=== PATIENT | male | born 1995 | race Caucasian/White ===

== ENCOUNTER 2017-04-18 01:35 | Inpatient (IN) | payer OTHER ==
[~2017-04-18] VITALS: Ht 177.8 cm; Wt 65.4 kg
[2017-04-18 02:02] VITALS: BP 121/74; PULSE 83; RESP 16; TEMP 98.3; O2SAT 99
[2017-04-18 02:45] LABS: AUTOMATED NEUTROPHIL # 4.9 TH/MM3 (1.8-7.7); BASOPHIL # 0.1 TH/MM3 (0-0.2); BASOPHIL % 0.8 % (0.0-2.0); EOSINOPHIL % 0.6 % (0.0-4.0); HEMATOCRIT 42.1 % (39.0-51.0); HEMO FLAGS DIFF FINAL; LYMPH % 23.6 % (9.0-44.0); LYMPHOCYTE # 1.7 TH/MM3 (1.0-4.8); MEAN CELL VOLUME 85.1 FL (80.0-100.0); MEAN CORPUSCULAR HEMOGLOBIN 29.3 PG (27.0-34.0); MEAN CORPUSCULAR HGB CONC 34.5 % (32.0-36.0); MONO % 8.3 % (0.0-8.0); NEUT % 66.7 % (16.0-70.0); PLATELET COUNT 304 TH/MM3 (150-450); RED BLOOD COUNT 4.95 MIL/MM3 (4.50-5.90); RED CELL DISTRIBUTION WIDTH 13.4 % (11.6-17.2); WHITE BLOOD COUNT 7.4 TH/MM3 (4.0-11.0)
[2017-04-18 02:54] LABS: AMPHETAMINE, URINE NEG (NEG); BARBITURATES, URINE NEG (NEG); COCAINE, URINE NEG (NEG)
[2017-04-18 03:07] LABS: ALT (GPT) 35 U/L (12-78); ANION GAP 12 MEQ/L (5-15); AST (GOT) 35 U/L (15-37); BICARBONATE 22.6 MEQ/L (21.0-32.0); BLOOD UREA NITROGEN 16 MG/DL (7-18); CHLORIDE 106 MEQ/L (98-107); GLOMERULAR FILTRATION RATE 77 ML/MIN (>89); POTASSIUM 3.3 MEQ/L (3.5-5.1); SODIUM (NA) 141 MEQ/L (136-145)
[2017-04-18 03:09] LABS: ALKALINE PHOSPHATASE 81 U/L (45-117); TOTAL BILIRUBIN ADULT 0.4 MG/DL (0.2-1.0)
--- NOTE | 2017-04-18 04:12 | PD ---
HPI Chief Complaint: Psychiatric Symptoms Time Seen by Provider: 04:02 Travel History International Travel<30 days: No Contact w/Intl Traveler<30days: No Traveled to known affect area: No History of Present Illness HPI 21-year-old male here as a Phillips act. Per Phillips act patient was walking on concrete rail of this [place]. Advised he doesn't care anymore and was crying upon contact. High likelihood of harming himself. Patient states that he has been feeling depressed and suicidal. This is recent. He denies any new inciting events, loss of the loved one, etc. that way have caused this. He admits that he was thinking about jumping off the bridge this evening. Patient has never had a previous suicide attempt, does not take any medications and denies taking any medications previously. He has never previously sought treatment for depression. PFSH Past Medical History Medical History: Denies Significant Hx Immunizations Current: Yes Tetanus Vaccination: < 5 Years Influenza Vaccination: No Social History Alcohol Use: No Tobacco Use: Yes Substance Use: No Allergies-Medications (Allergen,Severity, Reaction): Coded Allergies: No Known Allergies (Unverified , 04/18/17) Reported Meds & Prescriptions Reported Meds & Active Scripts Active No Active Prescriptions or Reported Medications Review of Systems ROS Limitations: Poor Historian Except as stated in HPI: all other systems reviewed are Neg Physical Exam Exam Limitations: Poor Historian Narrative GENERAL: Well-appearing male sleeping in no acute distress SKIN: Focused skin assessment warm/dry. HEAD: Normocephalic. EYES: No scleral icterus. No injection or drainage. ENT: No nasal bleeding or discharge. Mucous membranes pink and moist. NECK: Supple CARDIOVASCULAR: Regular rate and rhythm. RESPIRATORY: No accessory muscle use. MUSCULOSKELETAL: Normal gait NEUROLOGICAL: Awake and alert. Normal speech. PSYCHIATRIC: Blunted mood and affect, admits to suicidal ideation, depression but denies delusions, hallucinations, homicidal ideation Data Data Last Documented VS Vital Signs Date Time Temp Pulse Resp B/P Pulse Ox O2 Delivery O2 Flow Rate FiO2 04/18/17 02:02 98.3 83 16 121/74 99 Orders Complete Blood Count With Diff (04/18/17 02:16) Comprehensive Metabolic Panel (04/18/17 02:16) Psych Screen (04/18/17 02:16) Drug Screen, Random Urine (04/18/17 02:16) Salicylates (Aspirin) (04/18/17 02:16) Labs Laboratory Tests Test 04/18/17 02:20 White Blood Count 7.4 TH/MM3 Red Blood Count 4.95 MIL/MM3 Hemoglobin 14.5 GM/DL Hematocrit 42.1 % Mean Corpuscular Volume 85.1 FL Mean Corpuscular Hemoglobin 29.3 PG Mean Corpuscular Hemoglobin 34.5 % Concent Red Cell Distribution Width 13.4 % Platelet Count 304 TH/MM3 Mean Platelet Volume 7.3 FL Neutrophils (%) (Auto) 66.7 % Lymphocytes (%) (Auto) 23.6 % Monocytes (%) (Auto) 8.3 % Eosinophils (%) (Auto) 0.6 % Basophils (%) (Auto) 0.8 % Neutrophils # (Auto) 4.9 TH/MM3 Lymphocytes # (Auto) 1.7 TH/MM3 Monocytes # (Auto) 0.6 TH/MM3 Eosinophils # (Auto) 0.0 TH/MM3 Basophils # (Auto) 0.1 TH/MM3 CBC Comment DIFF FINAL Differential Comment Sodium Level 141 MEQ/L Potassium Level 3.3 MEQ/L Chloride Level 106 MEQ/L Carbon Dioxide Level 22.6 MEQ/L Anion Gap 12 MEQ/L Blood Urea Nitrogen 16 MG/DL Creatinine 1.18 MG/DL Estimat Glomerular Filtration 77 ML/MIN Rate Random Glucose 74 MG/DL Calcium Level 8.8 MG/DL Total Bilirubin 0.4 MG/DL Aspartate Amino Transf 35 U/L (AST/SGOT) Alanine Aminotransferase 35 U/L (ALT/SGPT) Alkaline Phosphatase 81 U/L Total Protein 7.6 GM/DL Albumin 4.2 GM/DL Salicylates Level LESS THAN 1.7 MG/DL Urine Opiates Screen NEG Urine Barbiturates Screen NEG Urine Amphetamines Screen NEG Urine Benzodiazepines Screen NEG Urine Cocaine Screen NEG Urine Cannabinoids Screen NEG MDM Medical Decision Making Medical Screen Exam Complete: Yes Emergency Medical Condition: Yes Medical Record Reviewed: Yes Differential Diagnosis 21-year-old male here as a Phillips act after suicidal thought with wanting to jump off a bridge, found on the bridge. Admits to feeling depressed and having persistent suicidal ideation at this time. Differential includes depression, suicidal ideation, adjustment reaction, substance induced mood disorder Narrative Course Patient placed on monitor, IV established and blood obtained laboratory workup unremarkable, patient medically clear for psychiatric evaluation. Diagnosis Primary Impression: Suicidal ideation Scripts No Active Prescriptions or Reported Meds Kaye Sin MD Apr 18, 2017 04:12
[2017-04-18 09:18] VITALS: BP 85/42; PULSE 59; RESP 15; O2SAT 98
[2017-04-18] MEDS ORDERED: ACETAMINOPHEN 325 MG TAB PO PRN (09:30)
[2017-04-18] MEDS ORDERED: LORazepam 2 MG/ML VIAL IM PRN ×4 (09:30)
[2017-04-18] MEDS ORDERED: LORazepam 2 MG TAB PO PRN (09:30)
[2017-04-18] MEDS ORDERED: BENZTROPINE MESYLATE 2 MG/2 ML VIAL IM PRN (09:30)
[2017-04-18] MEDS ORDERED: LORazepam 1 MG TAB PO PRN (09:30)
[2017-04-18] MEDS ORDERED: diphenhydrAMINE HCL 50 MG CAP PO PRN (09:30)
[2017-04-18] MEDS ORDERED: FLUMAZENIL 0.5 MG/5 ML VIAL IV PUSH PRN (09:30)
[2017-04-18] MEDS ORDERED: ALUMINUM/MAGNESIUM/SIMETH 30 ML CUP PO PRN (09:30)
[2017-04-18] MEDS ORDERED: hydrOXYzine HCL 50 MG TAB PO PRN (09:30)
[2017-04-18] MEDS ORDERED: BENZTROPINE MESYLATE 1 MG TAB PO PRN (09:30)
[2017-04-18] MEDS ORDERED: MAGNESIUM HYDROXIDE SUSP 30 ML CUP PO PRN (09:30)
--- NOTE | 2017-04-18 09:32 | HHI.HP ---
Provisional Diagnosis Admission Date 04/18/2017 [place] I. 1. Major depressive disorder, single episode, severe without psychotic features Rule out bipolar disorder 2. Alcohol use, rule out use disorder [place] II. Deferred [place] V. GAF is 30 presently Certification of Person's Competence To Provide Express and Informed Consent I have personally examined Jacinto Guzman , a person being served at [facility] on, Apr 18, 2017 09:32. Express and informed consent means consent voluntarily given in writing, by a competent person, after sufficient explanation and disclosure of the subject matter involved to enable the person to make a knowing and willful decision without any element of force, fraud, deceit, duress, or other form of constraint or coercion. This person is 18 years of age or older, is not now known to be incompetent to consent to treatment with a guardian advocate, and does not have a health care surrogate or proxy currently making medical treatment decisions. I have found this person to be one of the following: [x] Competent to provide express and informed consent, as defined above, for voluntary admission to this facility and is competent to provide express and informed consent for treatment. He/she has the consistent capacity to make well reasoned, willful, and knowing decisions concerning his or her medical or mental health treatment. The person fully and consistently understands the purpose of the admission for examination/placement and is fully capable of personally exercising all rights assured under [place] [] Incompetent to provide express and informed consent to voluntary admission, and this is incompetent to provide express and informed consent to treatment. The person must be transferred to involuntary status and a petition for a guardian advocate filed with the Circuit Court. [] Refusing to provide express and informed consent to voluntary admission but is competent to provide express and informed consent for treatment. The person must be discharged or transferred to involuntary status. Form shall be completed within 24 hours of a person's arrival at the receiving facility and filed in the clinical record of each person: 1. Admitted on a voluntary basis 2. Permitted to provide express and informed consent to his/her own treatment 3. Allowed to transfer from involuntary to voluntary status 4. Prior to permitting a person to consent to his or her own treatment after having been previously found incompetent to consent to treatment. History of Present Illness Capacity: Has Capacity HPI Mr. Guzman is a 21-year-old male with no diagnosed psychiatric illness who presents under a Phillips act after [place] was [place] in an intoxicated state. Alcohol level on presentation here was 202. Reviewing electronic medical record, no psychiatric history within our system. Patient seen and examined with nurse. Chart reviewed. Case discussed with nursing staff. On my examination today, the patient presents as quite dysphoric. He is clinically sober. He says that he was out partying and drinking heavily. He does remember walking on [place] and crying although he does not report that he was contemplating jumping off the bridge. He does say that he has been feeling quite depressed for several months, course worsening. Initial stressor was apparently infidelity on the part of an ex- girlfriend. He endorses worthlessness. Anhedonia present. Sleep and appetite are fair. He endorses suicidal ideation and says that he has contemplated overdose and hanging himself in the past. He agrees with my conjecture that if he were released from the emergency room today, a suicide attempt would be likely in his near future. He cannot generate any reasons to live. No hypomanic or manic symptoms now although the patient does admit to a history of mood instability not meeting criteria for hypomania/manuel in the past. No psychotic symptoms. No paranoia, no ideas of reference, no thought insertion or withdrawal. No hallucinations. Remainder of the psychiatric ROS is negative. Patient is agreeable to psychiatric admission for stabilization. Past psych history: Patient denies any history of inpatient or outpatient psychiatric treatment. He does say that he has contemplated suicide in the past but has made no suicide attempts. Family history: Patient reports that he has an older brother with bipolar disorder and PTSD from [place] [facility] [place]. He is unsure of the diagnoses, but his mother and 2 brothers have attempted suicide. No family history of substance use issues. Chemical dependency history: Patient maintains that he drinks alcohol only on the weekends. He has blacked out because he has drunk so heavily in the past. Denies a history of DTs or seizures. Denies consequences from alcohol use. Denies any other substance use. Social history: High school educated. Works installing insulation. Denies history. Denies legal history. Denies access to guns or firearms. Denies episcopalian beliefs. No history of trauma. Has a girlfriend. No children. Review of Systems Except as stated in HPI: all other systems reviewed are Neg Past Psych History Violence risk - others (6 mos) Lower risk. Denies HI. Violence risk - self (6 mos) Concern for elevated risk. Substance Abuse History Drugs/Alcohol past 12 months See above Past Family Social History Coded Allergies: No Known Allergies (Unverified , 04/18/17) Past Medical History Patient denies any medical issues No Active Prescriptions or Reported Meds Family History See above Social History See above Patient's Strengths (min. 2) In monitored setting. Verbally fluent. Physical Exam PE completed by ED provider. On my exam no acute physical distress. No motor abnormalities noted. Laboratories and vitals signs reviewed: Vital Signs Vital Signs Date Time Temp Pulse Resp B/P Pulse Ox O2 Delivery O2 Flow Rate FiO2 04/18/17 09:18 59 15 85/42 98 Room Air 04/18/17 02:02 98.3 Lab Results Laboratory Tests Test 04/18/17 02:20 White Blood Count 7.4 TH/MM3 Red Blood Count 4.95 MIL/MM3 Hemoglobin 14.5 GM/DL Hematocrit 42.1 % Mean Corpuscular Volume 85.1 FL Mean Corpuscular Hemoglobin 29.3 PG Mean Corpuscular Hemoglobin 34.5 % Concent Red Cell Distribution Width 13.4 % Platelet Count 304 TH/MM3 Mean Platelet Volume 7.3 FL Neutrophils (%) (Auto) 66.7 % Lymphocytes (%) (Auto) 23.6 % Monocytes (%) (Auto) 8.3 % Eosinophils (%) (Auto) 0.6 % Basophils (%) (Auto) 0.8 % Neutrophils # (Auto) 4.9 TH/MM3 Lymphocytes # (Auto) 1.7 TH/MM3 Monocytes # (Auto) 0.6 TH/MM3 Eosinophils # (Auto) 0.0 TH/MM3 Basophils # (Auto) 0.1 TH/MM3 CBC Comment DIFF FINAL Differential Comment Sodium Level 141 MEQ/L Potassium Level 3.3 MEQ/L Chloride Level 106 MEQ/L Carbon Dioxide Level 22.6 MEQ/L Anion Gap 12 MEQ/L Blood Urea Nitrogen 16 MG/DL Creatinine 1.18 MG/DL Estimat Glomerular Filtration 77 ML/MIN Rate Random Glucose 74 MG/DL Calcium Level 8.8 MG/DL Total Bilirubin 0.4 MG/DL Aspartate Amino Transf 35 U/L (AST/SGOT) Alanine Aminotransferase 35 U/L (ALT/SGPT) Alkaline Phosphatase 81 U/L Total Protein 7.6 GM/DL Albumin 4.2 GM/DL Salicylates Level LESS THAN 1.7 MG/DL Urine Opiates Screen NEG Urine Barbiturates Screen NEG Urine Amphetamines Screen NEG Urine Benzodiazepines Screen NEG Urine Cocaine Screen NEG Urine Cannabinoids Screen NEG Ethyl Alcohol Level 202 MG/DL Mental Status Examination Patient is in hospital gown. He is well groomed. He is awake and alert and oriented 3. No evidence of delirium. No motor abnormalities noted. Speech somewhat slowed with increased speech latency. Language and fund of knowledge at least average. Focus and concentration somewhat scattered. Memory grossly intact. Mood very depressed. Affect restricted. Thought process slowed but linear. No loosening of associations. No delusions. No hallucinations. Endorses suicidal ideation and agrees that a suicide attempt is likely in his near future if he is not admitted for stabilization. No urge to hurt himself on the inpatient unit. No homicidal ideation. Insight and judgment seem at least fair as he is willing to come onto the unit for stabilization. Assessment & Plan Problem List: (1) Major depressive disorder, single episode, severe without psychotic features ICD Code: F32.2 (2) Alcohol use, rule out use disorder Assessment & Plan 21-year-old male with psychiatric history as detailed above who presented initially under a Phillips act in an intoxicated state. Now sober, he admits to worsening depression over the last several months. Endorses suicidal ideation presently, and it appears that a suicide attempt is imminent if we do not intervene. Multiple risk factors including his depressed mood, family history of suicide and alcohol use. Patient is agreeable to admission to the inpatient psychiatric unit for stabilization. Admit inpatient. Voluntary status. Check TSH in the morning. For low mood, Prozac 20 mg daily with plans to titrate. Monitor for any induction of manuel as the patient does have a family history of bipolar illness and questionable personal history of mood instability. CIWA with Ativan. Thiamine and folate. Seizure and fall precautions. Atarax for anxiety, Benadryl for sleep, Cogentin for EPS. Vitals every shift. Counselor to see. Disposition planning. Estimated length of stay: 5-7 days. Discharge Planning Pending stabilization Request HC Surrog/Guard Advoc?: No Rolando Amado MD Apr 18, 2017 09:32
[2017-04-18] MEDS ORDERED: POTASSIUM CHLORIDE 10 MEQ CONTROLLED RELEASE TAB PO ONE (09:45)
[2017-04-18 10:46] VITALS: BP 104/44; PULSE 65; RESP 16; TEMP 97.7; O2SAT 98
[2017-04-18 18:38] VITALS: BP 105/44; PULSE 86; RESP 16; TEMP 97.9; O2SAT 99
[2017-04-19 06:15] VITALS: BP 110/55; PULSE 60; RESP 16; TEMP 98.1; O2SAT 97
[2017-04-19] MEDS: NICOTINE 21 MG/24 HR PATCH T-DERMAL SCH (09:00)
[2017-04-19] MEDS: THIAMINE HCL 100 MG TAB PO SCH (09:11)
[2017-04-19] MEDS: FLUoxetine HCL 20 MG CAP PO SCH (09:11)
[2017-04-19] MEDS: FOLIC ACID 1 MG TAB PO SCH (09:11)
[2017-04-19 10:19] LABS: ANION GAP 5 MEQ/L (5-15); BICARBONATE 26.9 MEQ/L (21.0-32.0); BLOOD UREA NITROGEN 18 MG/DL (7-18); CHLORIDE 105 MEQ/L (98-107); GLOMERULAR FILTRATION RATE 93 ML/MIN (>89); POTASSIUM 4.2 MEQ/L (3.5-5.1); SODIUM (NA) 137 MEQ/L (136-145)
[2017-04-19 10:24] LABS: HDL CHOLESTEROL 82.4 MG/DL (40.0-60.0); LDL CHOLESTEROL 32 MG/DL (0-99)
[2017-04-19 13:24] LABS: HEMOGLOBIN A1b 1.5 %; HEMOGLOBIN Ao 86.8 %; HEMOGLOBIN LA1C 1.9 %; HEMOGLOBIN P3 3.4 %
--- NOTE | 2017-04-19 15:28 | HHI.PYPN ---
Subjective Remarks Patient was seen and case discussed with nursing. Patient is pleasant and cooperative with exam. He does minimize the events leading to his admission including his suicidal ideation. Claims his thought process on intoxication with alcohol. Patient says he has accepted his recent stressors and is looking for a new start. Denies perseverating over his circumstances. Remains vague with the events leading to his actions. CIWA is 0. No signs of alcohol withdrawal. Denies suicidal ideation intent or plan Objective Alert: Yes [place]: Person, Place, Date, Situation Mood: Other ("better") Affect: Restricted Memory Intact: Immediate (grossly intact) Hallucinations: Auditory (denies) Delusions: No Delusion Type: Other (none elicited) Suicidal: Ideation (denies) Homicidal: Ideation (denies) Insight/Judgment Poor Labs Test 04/19/17 09:14 Sodium Level 137 MEQ/L Potassium Level 4.2 MEQ/L Chloride Level 105 MEQ/L Carbon Dioxide Level 26.9 MEQ/L Anion Gap 5 MEQ/L Blood Urea Nitrogen 18 MG/DL Creatinine 1.00 MG/DL Estimat Glomerular Filtration 93 ML/MIN Rate Random Glucose 80 MG/DL Hemoglobin A1c 5.1 % Calcium Level 8.6 MG/DL Triglycerides Level 49 MG/DL Cholesterol Level 124 MG/DL LDL Cholesterol 32 MG/DL HDL Cholesterol 82.4 MG/DL Cholesterol/HDL Ratio 1.50 RATIO Thyroid Stimulating Hormone 0.588 uIU/ML 3rd Gen Vitals/IOs Vital Signs Date Time Temp Pulse Resp B/P Pulse Ox O2 Delivery O2 Flow Rate FiO2 04/19/17 06:15 98.1 60 16 110/55 97 04/18/17 09:18 Room Air Assessment & Plan Problem List: (1) Major depressive disorder, single episode, severe without psychotic features ICD Code: F32.2 (2) Alcohol use, rule out use disorder Assessment & Plan Continue current treatment plan Justification for Cont. Inpt. Patient would decompensate in a less restrictive setting Request HC Surrog/Guard Advoc?: No Johan Almanza DO Apr 19, 2017 15:28
[2017-04-20] MEDS: NICOTINE 21 MG/24 HR PATCH T-DERMAL SCH (09:00)
[2017-04-20] MEDS ORDERED: REMOVE OLD PATCH T-DERMAL SCH (09:00)
[2017-04-20] MEDS: THIAMINE HCL 100 MG TAB PO SCH (09:07)
[2017-04-20] MEDS: FLUoxetine HCL 20 MG CAP PO SCH (09:07)
[2017-04-20] MEDS: FOLIC ACID 1 MG TAB PO SCH (09:07)
[2017-04-20] MEDS ORDERED: FLUO20CA12 PO (12:50)
--- NOTE | 2017-04-20 12:50 | HHI.DS ---
Psychiatry Discharge Summary Inpatient Psychiatric care?: Yes Advance Directive: No Reason Not Provided: Due to Patient Condition Mental Health AdvanceDirective: No Health Care Proxy: No Admission Admission Date Apr 18, 2017 at 09:28 Admission Diagnosis: (1) Major depressive disorder, single episode, severe without psychotic features ICD Code: F32.2 (2) Alcohol use, rule out use disorder Brief History Mr. Guzman is a 21-year-old male with no diagnosed psychiatric illness who presents under a Phillips act [place] in an [place]. Alcohol level on presentation here was 202. Reviewing electronic medical record, no psychiatric history within our system. Patient seen and examined with nurse. Chart reviewed. Case discussed with nursing staff. On my examination today, the patient presents as quite dysphoric. He is clinically sober. He says that he was out partying and drinking heavily. He does remember [place] and crying although he does not report that he was contemplating jumping off the bridge. He does say that he has been feeling quite depressed for several months, course worsening. Initial stressor was apparently infidelity on the part of an ex- girlfriend. He endorses worthlessness. Anhedonia present. Sleep and appetite are fair. He endorses suicidal ideation and says that he has contemplated overdose and hanging himself in the past. He agrees with my conjecture that if he were released from the emergency room today, a suicide attempt would be likely in his near future. He cannot generate any reasons to live. No hypomanic or manic symptoms now although the patient does admit to a history of mood instability not meeting criteria for hypomania/manuel in the past. No psychotic symptoms. No paranoia, no ideas of reference, no thought insertion or withdrawal. No hallucinations. Remainder of the psychiatric ROS is negative. Patient is agreeable to psychiatric admission for stabilization. Past psych history: Patient denies any history of inpatient or outpatient psychiatric treatment. He does say that he has contemplated suicide in the past but has made no suicide attempts. Family history: Patient reports that he has an older brother with bipolar disorder and PTSD from a tour in [facility]. He is unsure of the diagnoses, but his mother and 2 brothers have attempted suicide. No family history of substance use issues. Chemical dependency history: Patient maintains that he drinks alcohol only on the weekends. He has blacked out because he has drunk so heavily in the past. Denies a history of DTs or seizures. Denies consequences from alcohol use. Denies any other substance use. Social history: High school educated. Works installing insulation. Denies history. Denies legal history. Denies access to guns or firearms. Denies jain beliefs. No history of trauma. Has a girlfriend. No children. Tobacco Use In Past 30 Days: 5 or More Cigarettes/Day Alcohol Use: 2-4 Times Per Month Hospital Course Patient was admitted to a locked, inpatient psychiatric unit. Appropriate precautions were in place throughout patient's hospital stay. Patient was seen and examined daily on the unit by psychiatry and also visited by counselor. Psychiatric medications were adjusted. Patient tolerated medication changes well without side effects. Patient had improvement in presenting psychiatric symptomatology. There was no evidence of any suicidality or homicidality on the inpatient unit. Patient remained in good behavioral control and was medication compliant. On the day of discharge: Patient seen and examined. Chart reviewed. Case discussed with nursing staff. No behavioral issues noted overnight. Case discussed with counselor who has reached out patient's father who reportedly has no concerns about patient leaving the hospital today. On my examination today, the patient is requesting discharge from the inpatient unit. He feels like his presenting behavior was just "a drunken mishap," and he says that he plans to avoid drinking in future by "finding other hobbies." He denies any suicidal or homicidal ideation, intent or plan on direct questioning and contracts for safety. Mood is improved versus admission, and I can elicit no depressive or hypomanic/manic symptoms at this time. No hallucinations or delusional material. He denies side effects from medications. No physical complaints. Weighing the acute, chronic, and protective factors and based on the available evidence, I fleshing machine operator to a reasonable degree of medical certainty that the patient is at low imminent risk of harm to self or others from a mental illness as defined under the Phillips act and his level of function is adequate for outpatient care. Consequently, the patient does not meet criteria for involuntary psychiatric hospitalization at this time. I have strongly recommended that he remain voluntarily for further observation, but he has declined. I must therefore arrange for his discharge today with psychiatric follow-up as arranged by counselor. Patient is also to follow-up with primary care. I counseled the patient to pursue chemical dependency evaluation and treatment and to abstain from alcohol use, and I have noted that his stated plan for sobriety will likely prove insufficient and that he should consider at least 12-step. I counseled the patient regarding warning signs for need to return to the psychiatric emergency room as part of a general safety plan. Results Blood Pressure 110 / 55 Vital Signs Date Time Temp Pulse Resp B/P Pulse Ox O2 Delivery O2 Flow Rate FiO2 04/19/17 06:15 98.1 60 16 110/55 97 04/18/17 09:18 Room Air Laboratory Tests Test 04/18/17 04/19/17 02:20 09:14 Monocytes (%) (Auto) 8.3 % (0.0-8.0) Potassium Level 3.3 MEQ/L (3.5-5.1) Estimat Glomerular Filtration 77 ML/MIN (>89) Rate Salicylates Level LESS THAN 1.7 MG/DL (2.8-20.0) Ethyl Alcohol Level 202 MG/DL (0-5) HDL Cholesterol 82.4 MG/DL (40.0-60.0) Laboratory Results Test 04/19/17 09:14 Hemoglobin A1c 5.1 % (4.3-6.0) Triglycerides Level 49 MG/DL (42-150) Cholesterol Level 124 MG/DL (120-200) LDL Cholesterol 32 MG/DL (0-99) HDL Cholesterol 82.4 MG/DL (40.0-60.0) Summary of Procedures None done Imaging None done Pending results at discharge: No Medications # of Antipsychotic meds at D/C: 0 Approp Antipsych med options 1 - Minimum of three failed multiple trials of monotherapy. 2 - Documented plan to taper to monotherapy due to previous use of multiple meds OR cross-taper in progress at D/C. 3 - Documentation of augmentation of Clozapine. 4 - Justification other than those listed in allowable values 1-3, document here : Discharge Discharge Date: Apr 20, 2017 Discharge Diagnosis: (1) Alcohol abuse with alcohol-induced mood disorder Diagnosis: Principal (mood disorder resolved) ICD Code: F10.14 GAF is 60 Mental Status Exam at Disch Patient is in hospital gown. He is well groomed. He is awake and alert and oriented 3. No evidence of delirium. No abnormal motor movements noted. No signs of withdrawal noted. Speech is within normal limits for rate, tone and volume. Language and fund of knowledge are average. Focus and concentration intact. Memory grossly intact on clinical exam. Mood is much improved versus admission and affect is euthymic, full and reactive. Thought process linear. No loosening of associations. No delusions elicited. Denies audiovisual hallucinations. Denies suicidal or homicidal ideation, intent or plan. Insight and judgment are fair at best. Pt Condition on Discharge: Stable Discharge Disposition: Discharge Home Discharge Instructions Diet Instructions: As Tolerated, No Restrictions Activities you can perform: Weight Bearing as Malathi Scheduled Appointment: as per counselor's notes New Medications: Fluoxetine (Fluoxetine) 20 Mg Capsule 20 MG PO DAILY Mental Health Days 15 Ref 1 CAP Discharge Time <= 30 minutes Discharge/Advance Care Plan Health Problems: (1) Major depressive disorder, single episode, severe without psychotic features (2) Alcohol use, rule out use disorder Goals to promote your health * To prevent worsening of your condition and complications * To maintain your health at the optimal level Directions to meet your goals Take your medications as prescribed Follow your dietary instruction Follow activity as directed Keep your appointments as scheduled Take your immunizations and boosters as scheduled If your symptoms worsen call your PCP, if no PCP go to Urgent Care Center or Emergency Room For 27/04 questions related to your inpatient stay or results of tests pending at discharge, please contact Dr. Rolando Amado at Smoking is Dangerous to Your Health. Avoid second hand smoking Rolando Amado MD Apr 20, 2017 12:50
== END 2017-04-20 14:45 | disposition home or self-care (01) | DRG 885 ==
LOC: NEPE 01:35 → NEDA 09:28 → H260 10:25
PROVIDERS: ADMIT Psychiatry & Neurology Psychiatry; ATTEND Psychiatry & Neurology Psychiatry
DX: F32.2 Major depressive disorder, single episode, severe without psychotic features (principal); R45.851 Suicidal ideations; F10.14 Alcohol abuse with alcohol-induced mood disorder; F17.210 Nicotine dependence, cigarettes, uncomplicated; F10.120 Alcohol abuse with intoxication, uncomplicated; Y90.7 Blood alcohol level of 200-239 mg/100 ml; Z81.8 Family history of other mental and behavioral disorders
CPT/HCPCS: 80048; 80053; 80061; 80307; 83036; 84443; 85025

== ENCOUNTER 2018-03-05 19:49 | Observation (INO) | payer BC, OTHER ==
[~2018-03-05] VITALS: Ht 177.8 cm; Wt 65.0 kg
[~2018-03-05 19:49] MED LIST: FLUO20CA12 PO
[2018-03-05 20:07] VITALS: BP 137/69; PULSE 58; RESP 20; TEMP 97.8; O2SAT 99
[2018-03-05 21:39] LABS: AUTOMATED NEUTROPHIL # 8.2 TH/MM3 (1.8-7.7); BASOPHIL % 0.4 % (0.0-2.0); EOSINOPHIL # 0.1 TH/MM3 (0-0.4); EOSINOPHIL % 0.8 % (0.0-4.0); HEMATOCRIT 41.8 % (39.0-51.0); HEMOGLOBIN 14.2 GM/DL (13.0-17.0); LYMPH % 16.1 % (9.0-44.0); LYMPHOCYTE # 1.7 TH/MM3 (1.0-4.8); MEAN CELL VOLUME 84.5 FL (80.0-100.0); MEAN CORPUSCULAR HEMOGLOBIN 28.7 PG (27.0-34.0); MEAN PLATELET VOLUME 7.5 FL (7.0-11.0); MONO % 6.1 % (0.0-8.0); MONOCYTE # 0.7 TH/MM3 (0-0.9); NEUT % 76.6 % (16.0-70.0); PLATELET COUNT 305 TH/MM3 (150-450); RED BLOOD COUNT 4.94 MIL/MM3 (4.50-5.90); RED CELL DISTRIBUTION WIDTH 12.9 % (11.6-17.2); WHITE BLOOD COUNT 10.7 TH/MM3 (4.0-11.0)
[2018-03-05 21:49] LABS: BILIRUBIN, URINE NEG (NEG); BLOOD, URINE MOD (NEG); GLUCOSE,URINE NEG (NEG); KETONE, URINE TRACE mg/dL (NEG); NITRITE,URINE NEG (NEG); PH, URINE 6.5 (5.0-8.5); URINE COLOR YELLOW (YELLW/STRAW); URINE LEUKOCYTE ESTERASE NEG (NEG)
[2018-03-05 21:56] LABS: BICARBONATE 24.9 MEQ/L (21.0-32.0); CALCIUM 8.9 MG/DL (8.5-10.1); CREATININE 1.48 MG/DL (0.60-1.30)
[2018-03-05] MEDS ORDERED: SODIUM CHLOR 0.9% 1000 ML INJ 1,000 ML IV ONE (22:00)
--- NOTE | 2018-03-05 22:20 | PD ---
HPI Chief Complaint: Complaint Time Seen by Provider: 20:36 Travel History International Travel<30 days: No Contact w/Intl Traveler<30days: No Traveled to known affect area: No History of Present Illness HPI 22-year-old male the presents to the ED for evaluation of hematuria. Patient he has noted dark hearing and blood in his urine today. Per patient he does work out pretty regularly as he states that he works out a lot today. Per patient he noticed that his urine was really dark today. Patient had no other symptoms. No weakness. He went to the urgent care as he continued to have a dark urine and per patient he believed that he was having blood. He went to the urgent care and did a urine sample and apparently was very dark here. Unclear if they evaluated the urine. He has no symptoms. No testicular pain. No flank pain. No medical history. Denies take any medications. He does state that he believes that he may be dehydrated. Has no allergies to medication. No other medical issues. Patient's hearing here appears to be back to baseline per patient. PFSH Past Medical History Medical History: Denies Significant Hx Depression: Yes Diminished Hearing: No Immunizations Current: Yes Tetanus Vaccination: < 5 Years Influenza Vaccination: No ?: Not Past Surgical History Surgical History: No Previous Surgery Social History Alcohol Use: No Tobacco Use: Yes Substance Use: No Allergies-Medications (Allergen,Severity, Reaction): Coded Allergies: No Known Allergies (Unverified Adverse Reaction, Unknown, 03/05/18) Reported Meds & Prescriptions Reported Meds & Active Scripts Active Review of Systems Except as stated in HPI: all other systems reviewed are Neg Physical Exam Narrative GENERAL: SKIN: Warm and dry. HEAD: Atraumatic. Normocephalic. EYES: Pupils equal and round. No scleral icterus. No injection or drainage. ENT: No nasal bleeding or discharge. Mucous membranes pink and moist. Tongue is midline. No uvula deviation. NECK: Trachea midline. No JVD. CARDIOVASCULAR: Regular rate and rhythm. No murmurs, S3, S4. RESPIRATORY: No accessory muscle use. Clear to auscultation. Breath sounds equal bilaterally. GASTROINTESTINAL: Abdomen soft, non-tender, nondistended. Hepatic and splenic margins not palpable. No flank pain bilaterally MUSCULOSKELETAL: Extremities without clubbing, cyanosis, or edema. No obvious deformities. Full range of motion of the upper and lower extremity bilaterally. 2+ pulses bilaterally. NEUROLOGICAL: Awake and alert. No obvious cranial nerve deficits. Motor grossly within normal limits. Five out of 5 muscle strength in the arms and legs. Normal speech. PSYCHIATRIC: Appropriate mood and affect; insight and judgment normal. Data Data Last Documented VS Vital Signs Date Time Temp Pulse Resp B/P (MAP) Pulse Ox O2 Delivery O2 Flow Rate FiO2 03/05/18 20:07 97.8 58 20 137/69 (91) 99 Orders Orders Complete Blood Count With Diff (03/05/18 20:49) Urinalysis - C+S If Indicated (03/05/18 20:49) Basic Metabolic Panel (Bmp) (03/05/18 20:54) Creatine Kinase (Cpk) (03/05/18 20:54) Sodium Chlor 0.9% 1000 Ml Inj (Ns 1000 M (03/05/18 22:00) CKMB (03/05/18 21:00) CKMB% (03/05/18 21:00) Ed Discharge Order (03/05/18 22:33) Admit Order (Ed Use Only) (03/05/18 23:04) Labs Laboratory Tests Test 03/05/18 21:00 White Blood Count 10.7 TH/MM3 Red Blood Count 4.94 MIL/MM3 Hemoglobin 14.2 GM/DL Hematocrit 41.8 % Mean Corpuscular Volume 84.5 FL Mean Corpuscular Hemoglobin 28.7 PG Mean Corpuscular Hemoglobin Concent 34.0 % Red Cell Distribution Width 12.9 % Platelet Count 305 TH/MM3 Mean Platelet Volume 7.5 FL Neutrophils (%) (Auto) 76.6 % Lymphocytes (%) (Auto) 16.1 % Monocytes (%) (Auto) 6.1 % Eosinophils (%) (Auto) 0.8 % Basophils (%) (Auto) 0.4 % Neutrophils # (Auto) 8.2 TH/MM3 Lymphocytes # (Auto) 1.7 TH/MM3 Monocytes # (Auto) 0.7 TH/MM3 Eosinophils # (Auto) 0.1 TH/MM3 Basophils # (Auto) 0.0 TH/MM3 CBC Comment DIFF FINAL Differential Comment Urine Color YELLOW Urine Turbidity CLEAR Urine pH 6.5 Urine Specific [place] 1.034 Urine Protein 30 mg/dL Urine Glucose (UA) NEG mg/dL Urine Ketones TRACE mg/dL Urine Occult Blood MOD Urine Nitrite NEG Urine Bilirubin NEG Urine Urobilinogen 2.0 MG/DL Urine Leukocyte Esterase NEG Urine WBC 5 /hpf Urine Granular Casts 11 /lpf Microscopic Urinalysis Comment CULT NOT INDICATED Blood Urea Nitrogen 30 MG/DL Creatinine 1.48 MG/DL Random Glucose 123 MG/DL Calcium Level 8.9 MG/DL Sodium Level 141 MEQ/L Potassium Level 4.0 MEQ/L Chloride Level 108 MEQ/L Carbon Dioxide Level 24.9 MEQ/L Anion Gap 8 MEQ/L Estimat Glomerular Filtration Rate 59 ML/MIN Total Creatine Kinase 924 U/L Creatine Kinase MB 7.3 NG/ML Creatine Kinase MB % 0.8 % MDM Medical Decision Making Medical Screen Exam Complete: Yes Emergency Medical Condition: Yes Medical Record Reviewed: Yes Interpretation(s) CBC & BMP Diagram 03/05/18 21:00 Calcium Level 8.9 UA shows some blood, protein and ketones otherwise unremarcable. CK slightly elevated in the 900s Differential Diagnosis Dehydration versus kidney injury versus rhabdomyolysis versus UTI Narrative Course 22-year-old male the presents to the ED for evaluation of hematuria. Patient was properly examined symptoms of unclear etiology. Urine here appears to be normal. Patient has no symptoms. Patient does work out a lot. There is some concern for rhabdo and kidney disease. Urine and blood work was done. Urine and blood work shows some hematuria as well as what appears to be mild rhabdo with appears to be acute kidney injury possibly from the hydration. Case was discussed with my attending Dr Lopez who evaluated the patient and recommends obs admission for hydration and further eval if needed. Patient at first decided to go home. Then changed his mind. [facility] paged and Dr Butler agrees to obs admission. Diagnosis Primary Impression: Rhabdomyolysis Qualified Codes: M62.82 - Rhabdomyolysis Additional Impression: Dehydration Referrals: [facility] Primary Care [facility] Patient Instructions: General Instructions Additional Instructions: Drink plenty of fluids everyday especially when working out. Preferably water. Follow up with PCP for further evaluation of your kidney disease. If worsening you might need further testing, but if better might just need monitoring. See ED if worsening symptoms. Med/Other Pt SpecificInfo: No Meds Exist/No RX given Disposition: DISCHARGE HOME Condition: Stable Moe Montoya Mar 05, 2018 22:20
--- NOTE | 2018-03-05 22:35 | PD ---
Physical Exam Date Seen by Provider: Mar 05, 2018 Time Seen by Provider: 22:00 Narrative I, Dr. Jones, have reviewed the advance practice practitioner's documentation and am in agreement, met with the patient face to face, made the diagnosis, and the medical decision making was done by me. *My assessment and Findings: Patient seen and evaluated with PA, please see PA notes for further details. He apparently has seen dark urine, has been working out more recently, vital signs are stable, lab work is showing some signs of acute renal injury or dehydration, CPK is elevated, and at this point, vital signs are stable and my plan would be to give him IV fluids for further treatment. We have discussed close observation follow-up with primary care physician in the next few days and p.o. fluid rehydration, versus observation admission and further IV fluids, and this point the patient is deciding that he would prefer outpatient follow-up. I have stated to him the importance of getting his renal functions reevaluated and drinking plenty of fluids. Return for any worsening in symptoms or new issues. Plan was discussed with him and he states understanding. Laboratory Tests Test 03/05/18 21:00 Neutrophils (%) (Auto) 76.6 % (16.0-70.0) Neutrophils # (Auto) 8.2 TH/MM3 (1.8-7.7) Urine Protein 30 mg/dL (NEG-TRACE) Urine Ketones TRACE mg/dL (NEG) Urine Occult Blood MOD (NEG) Blood Urea Nitrogen 30 MG/DL (7-18) Creatinine 1.48 MG/DL (0.60-1.30) Random Glucose 123 MG/DL (74-106) Chloride Level 108 MEQ/L (98-107) Estimat Glomerular Filtration Rate 59 ML/MIN (>89) Total Creatine Kinase 924 U/L (39-308) Creatine Kinase MB 7.3 NG/ML (0.5-3.6) Data Data Last Documented VS Vital Signs Date Time Temp Pulse Resp B/P (MAP) Pulse Ox O2 Delivery O2 Flow Rate FiO2 03/05/18 20:07 97.8 58 20 137/69 (91) 99 Orders Orders Complete Blood Count With Diff (03/05/18 20:49) Urinalysis - C+S If Indicated (03/05/18 20:49) Basic Metabolic Panel (Bmp) (03/05/18 20:54) Creatine Kinase (Cpk) (03/05/18 20:54) Sodium Chlor 0.9% 1000 Ml Inj (Ns 1000 M (03/05/18 22:00) CKMB (03/05/18 21:00) CKMB% (03/05/18 21:00) Labs Laboratory Tests Test 03/05/18 21:00 White Blood Count 10.7 TH/MM3 Red Blood Count 4.94 MIL/MM3 Hemoglobin 14.2 GM/DL Hematocrit 41.8 % Mean Corpuscular Volume 84.5 FL Mean Corpuscular Hemoglobin 28.7 PG Mean Corpuscular Hemoglobin Concent 34.0 % Red Cell Distribution Width 12.9 % Platelet Count 305 TH/MM3 Mean Platelet Volume 7.5 FL Neutrophils (%) (Auto) 76.6 % Lymphocytes (%) (Auto) 16.1 % Monocytes (%) (Auto) 6.1 % Eosinophils (%) (Auto) 0.8 % Basophils (%) (Auto) 0.4 % Neutrophils # (Auto) 8.2 TH/MM3 Lymphocytes # (Auto) 1.7 TH/MM3 Monocytes # (Auto) 0.7 TH/MM3 Eosinophils # (Auto) 0.1 TH/MM3 Basophils # (Auto) 0.0 TH/MM3 CBC Comment DIFF FINAL Differential Comment Urine Color YELLOW Urine Turbidity CLEAR Urine pH 6.5 Urine Specific [place] 1.034 Urine Protein 30 mg/dL Urine Glucose (UA) NEG mg/dL Urine Ketones TRACE mg/dL Urine Occult Blood MOD Urine Nitrite NEG Urine Bilirubin NEG Urine Urobilinogen 2.0 MG/DL Urine Leukocyte Esterase NEG Urine WBC 5 /hpf Urine Granular Casts 11 /lpf Microscopic Urinalysis Comment CULT NOT INDICATED Blood Urea Nitrogen 30 MG/DL Creatinine 1.48 MG/DL Random Glucose 123 MG/DL Calcium Level 8.9 MG/DL Sodium Level 141 MEQ/L Potassium Level 4.0 MEQ/L Chloride Level 108 MEQ/L Carbon Dioxide Level 24.9 MEQ/L Anion Gap 8 MEQ/L Estimat Glomerular Filtration Rate 59 ML/MIN Total Creatine Kinase 924 U/L Creatine Kinase MB 7.3 NG/ML Creatine Kinase MB % 0.8 % [facility] Medical Record Reviewed: Yes Supervised Visit with FLORIAN: Yes Diagnosis Primary Impression: Rhabdomyolysis Qualified Codes: M62.82 - Rhabdomyolysis Additional Impression: Dehydration [facility] Patient Instructions: General Instructions Additional Instruction: Drink plenty of fluids everyday especially when working out. Preferably water. Follow up with PCP for further evaluation of your kidney disease. If worsening you might need further testing, but if better might just need monitoring. See ED if worsening symptoms. Disposition: 01 DISCHARGE HOME Condition: Stable Chauncey Jones MD Mar 05, 2018 22:35
[2018-03-05 23:11] VITALS: BP 123/63; PULSE 70; RESP 14; O2SAT 99
[2018-03-06] MEDS ORDERED: NALOXONE HCL 0.4 MG/ML AMP IV PUSH PRN (01:00)
[2018-03-06] MEDS ORDERED: LACTULOSE SYRUP 20 GM/30 ML CUP PO PRN (01:00)
[2018-03-06] MEDS ORDERED: SENNOSIDES 8.6 MG TAB PO PRN (01:00)
[2018-03-06] MEDS ORDERED: MAGNESIUM HYDROXIDE SUSP 30 ML CUP PO PRN (01:00)
[2018-03-06] MEDS ORDERED: ACETAMINOPHEN 325 MG TAB PO PRN (01:00)
[2018-03-06] MEDS ORDERED: SODIUM CHLORIDE 0.9% FLUSH 10 ML FLUSH IV FLUSH PRN (01:00)
[2018-03-06] MEDS ORDERED: BISACODYL 10 MG SUPP RECTAL PRN (01:00)
[2018-03-06] MEDS: SODIUM CHLOR 0.9% 1000 ML INJ 1,000 ML IV SCH ×2 (01:06→08:20)
[2018-03-06] MEDS ORDERED: ONDANSETRON ODT 4 MG TAB PO PRN (01:15)
[2018-03-06 01:25] VITALS: BP 116/56; PULSE 57; RESP 16; TEMP 97.7; O2SAT 97
[2018-03-06 03:53] VITALS: BP 112/55; PULSE 73; RESP 16; TEMP 97.5; O2SAT 99
--- NOTE | 2018-03-06 04:16 | HHI.HP ---
[place] [facility] Unknown Admission Diagnosis acute kidney injury, mild rhabdomyolisis Diagnoses: Travel History International Travel<30 Days: No Contact w/Intl Traveler <30 Da: No Traveled to Known Affected Are: No History of Present Illness 22-year-old male presents to the emergency department for evaluation of dark urine. The patient reports that starting yesterday, he had dark, coffee colored urine. He denies any associated pain. No fever/chills. States he works out "all the time." Denies chest pain or shortness of breath. No abdominal pain. No nausea/vomiting/diarrhea. No lateralizing signs or symptoms. Review of Systems Except as stated in HPI: all other systems reviewed are Neg Past Family Social History Past Medical History None Past Surgical History None Reported Medications Reported Meds & Active Scripts Active Allergies: Coded Allergies: No Known Allergies (Unverified Allergy, Unknown, 03/06/18) Family History Mother with diabetes mellitus and CAD Social History Occasional tobacco, quit approximately 1 week ago. Occasional alcohol. Denies illegal drugs. Takes testosterone. Physical Exam Vital Signs Vital Signs Date Time Temp Pulse Resp B/P (MAP) Pulse Ox O2 Delivery O2 Flow Rate FiO2 03/06/18 03:53 97.5 73 16 112/55 (74) 99 03/06/18 01:25 97.7 57 16 116/56 (76) 97 03/06/18 01:19 03/05/18 23:11 70 14 123/63 (83) 99 Room Air 03/05/18 20:07 97.8 58 20 137/69 (91) 99 Physical Exam GENERAL: male sitting up in chair SKIN: No rashes, ecchymoses or lesions. Cool and dry. HEAD: Atraumatic. Normocephalic. No temporal or scalp tenderness. EYES: Pupils equal round and reactive. Extraocular motions intact. No scleral icterus. No injection or drainage. ENT: Nose without bleeding, purulent drainage or septal hematoma. Throat without erythema, tonsillar hypertrophy or exudate. Uvula midline. Airway patent. NECK: Trachea midline. No JVD or lymphadenopathy. Supple, nontender, no meningeal signs. CARDIOVASCULAR: Regular rate and rhythm without murmurs, gallops, or rubs. RESPIRATORY: Clear to auscultation. Breath sounds equal bilaterally. No wheezes , rales, or rhonchi. GASTROINTESTINAL: Abdomen soft, non-tender, nondistended. No hepato-splenomegaly , or palpable masses. No guarding. MUSCULOSKELETAL: Extremities without clubbing, cyanosis, or edema. No joint tenderness, effusion, or edema noted. No calf tenderness. NEUROLOGICAL: Awake and alert. Cranial nerves II through XII intact. Motor and sensory grossly within normal limits. Normal speech. Laboratory Laboratory Tests Test 03/05/18 21:00 White Blood Count 10.7 Red Blood Count 4.94 Hemoglobin 14.2 Hematocrit 41.8 Mean Corpuscular Volume 84.5 Mean Corpuscular Hemoglobin 28.7 Mean Corpuscular Hemoglobin Concent 34.0 Red Cell Distribution Width 12.9 Platelet Count 305 Mean Platelet Volume 7.5 Neutrophils (%) (Auto) 76.6 Lymphocytes (%) (Auto) 16.1 Monocytes (%) (Auto) 6.1 Eosinophils (%) (Auto) 0.8 Basophils (%) (Auto) 0.4 Neutrophils # (Auto) 8.2 Lymphocytes # (Auto) 1.7 Monocytes # (Auto) 0.7 Eosinophils # (Auto) 0.1 Basophils # (Auto) 0.0 CBC Comment DIFF FINAL Differential Comment Urine Color YELLOW Urine Turbidity CLEAR Urine pH 6.5 Urine Specific [place] 1.034 Urine Protein 30 Urine Glucose (UA) NEG Urine Ketones TRACE Urine Occult Blood MOD Urine Nitrite NEG Urine Bilirubin NEG Urine Urobilinogen 2.0 Urine Leukocyte Esterase NEG Urine WBC 5 Urine Granular Casts 11 Microscopic Urinalysis Comment CULT NOT INDICATED Blood Urea Nitrogen 30 Creatinine 1.48 Random Glucose 123 Calcium Level 8.9 Sodium Level 141 Potassium Level 4.0 Chloride Level 108 Carbon Dioxide Level 24.9 Anion Gap 8 Estimat Glomerular Filtration Rate 59 Total Creatine Kinase 924 Creatine Kinase MB 7.3 Creatine Kinase MB % 0.8 Result Diagram: 03/05/18209903/05/182099 Caprini VTE Risk Assessment Caprini VTE Risk Assessment: No/Low Risk (score <= 1) Caprini Risk Assessment Model Point Value = 1 Point Value = 2 Point Value = 3 Point Value = 5 Age 41-60 Minor surgery BMI > 25 kg/m2 Swollen legs Varicose veins or History of unexplained or recurrent spontaneous Oral contraceptives or hormone replacement Sepsis (< 1 month) Serious lung disease, including pneumonia (< 1 month) Abnormal pulmonary function Acute myocardial infarction Congestive heart failure (< 1 month) History of inflammatory bowel disease Medical patient at bed rest Age 61-74 Arthroscopic surgery Major open surgery (> 45 min) Laparoscopic surgery (> 45 min) Malignancy Confined to bed (> 72 hours) Immobilizing plaster cast Central venous access Age >= 75 History of VTE Family history of VTE Factor V Leiden Prothrombin [id number] Lupus anticoagulant Anticardiolipin antibodies Elevated serum homocysteine Heparin-induced thrombocytopenia Other congenital or acquired thrombophilia Stroke (< 1 month) Elective arthroplasty Hip, pelvis, or leg fracture Acute spinal cord injury (< 1 month) Prophylaxis Regimen Total Risk Factor Score Risk Level Prophylaxis Regimen 0-1 Low Early ambulation 2 Moderate Order ONE of the following: *Sequential Compression Device (SCD) *Heparin 5000 units SQ BID 3-4 Higher Order ONE of the following medications: *Heparin 5000 units SQ TID *Enoxaparin/Lovenox 40 mg SQ daily (WT < 150 kg, CrCl > 30 mL/min) *Enoxaparin/Lovenox 30 mg SQ daily (WT < 150 kg, CrCl > 10-29 mL/min) *Enoxaparin/Lovenox 30 mg SQ BID (WT < 150 kg, CrCl > 30 mL/min) AND/OR *Sequential Compression Device (SCD) 5 or more Highest Order ONE of the following medications: *Heparin 5000 units SQ TID (Preferred with Epidurals) *Enoxaparin/Lovenox 40 mg SQ daily (WT < 150 kg, CrCl > 30 mL/min) *Enoxaparin/Lovenox 30 mg SQ daily (WT < 150 kg, CrCl > 10-29 mL/min) *Enoxaparin/Lovenox 30 mg SQ BID (WT < 150 kg, CrCl > 30 mL/min) AND *Sequential Compression Device (SCD) Assessment and Plan Assessment and Plan Assessment/plan: 1. Rhabdo/acute kidney injury Likely secondary to working CK elevated to 924 BUN/creatinine 30/1.48 Aggressive IV fluid hydration Repeat CK in a.m. Monitor renal function 2. Testosterone abuse Cessation counseling provided FEN Regular diet Electrolytes: Monitor and replete as needed NS at 1 50 cc/hour Sveta Butler MD Mar 06, 2018 04:16
[2018-03-06 07:47] VITALS: BP 106/52; PULSE 59; RESP 18; TEMP 97.8; O2SAT 98
[2018-03-06 08:16] LABS: AUTOMATED NEUTROPHIL # 3.6 TH/MM3 (1.8-7.7); BASOPHIL % 0.6 % (0.0-2.0); EOSINOPHIL # 0.2 TH/MM3 (0-0.4); EOSINOPHIL % 2.8 % (0.0-4.0); HEMATOCRIT 39.9 % (39.0-51.0); HEMOGLOBIN 13.6 GM/DL (13.0-17.0); LYMPH % 33.6 % (9.0-44.0); LYMPHOCYTE # 2.2 TH/MM3 (1.0-4.8); MEAN CELL VOLUME 85.9 FL (80.0-100.0); MEAN CORPUSCULAR HEMOGLOBIN 29.2 PG (27.0-34.0); MONO % 9.9 % (0.0-8.0); MONOCYTE # 0.7 TH/MM3 (0-0.9); NEUT % 53.1 % (16.0-70.0); PLATELET COUNT 256 TH/MM3 (150-450); RED BLOOD COUNT 4.65 MIL/MM3 (4.50-5.90); WHITE BLOOD COUNT 6.7 TH/MM3 (4.0-11.0)
--- NOTE | 2018-03-06 08:30 | HHI.PR ---
Subjective Remarks Follow-up for rhabdomyolysis, YECENIA. Patient reports his urine is becoming more clear. He denies any muscle aches or cramps. Denies any chest pain. He is ambulating without difficulty. He wants to go home. Encouraged to continue oral hydration after discharge. Objective Vitals Vital Signs Date Time Temp Pulse Resp B/P (MAP) Pulse Ox O2 Delivery O2 Flow Rate FiO2 03/06/18 07:47 97.8 59 18 106/52 (70) 98 03/06/18 03:53 97.5 73 16 112/55 (74) 99 03/06/18 01:25 97.7 57 16 116/56 (76) 97 03/06/18 01:19 03/05/18 23:11 70 14 123/63 (83) 99 Room Air 03/05/18 20:07 97.8 58 20 137/69 (91) 99 I/O 03/05/18 03/05/18 03/05/18 03/06/18 03/06/18 03/06/18 07:00 15:00 23:00 07:00 15:00 23:00 Intake Total 1000 ml Balance 1000 ml Intake IV Total 1000 ml Result Diagram: 03/05/18 2100 03/05/18 2100 Objective Remarks GENERAL: Well-nourished, well-developed young male patient in [facility]. SKIN: Warm and dry. No rash. HEENT: Normocephalic. Atraumatic. Pupils equal and round. Mucous membranes pink and moist. CARDIOVASCULAR: Regular rate and rhythm. No murmur appreciated. RESPIRATORY: No accessory muscle use. Clear to auscultation. Breath sounds equal bilaterally. GASTROINTESTINAL: Abdomen soft, non-tender, nondistended. Normoactive bowel sounds x4. MUSCULOSKELETAL: No obvious deformities. Extremities without clubbing, cyanosis , or edema. Bilateral calves nontender to palpation. NEUROLOGICAL: Awake and alert. No obvious cranial nerve deficits. Motor grossly within normal limits. Moving all extremities spontaneously. Normal speech. PSYCHIATRIC: Appropriate mood and affect; insight and judgment normal. Medications and IVs Current Medications Medications (Trade) Dose Ordered Sig/Patience Route Start Time Stop Time Status Last Admin Sodium Chloride 1,000 ml @ 150 mls/hr Q6H40M IV 03/06/18 00:56 03/06/18 01:06 (NS Flush) 2 ml UNSCH PRN IV FLUSH 03/06/18 01:00 (NS Flush) 2 ml BID IV FLUSH 03/06/18 09:00 (Tylenol) 650 mg Q4H PRN PO 03/06/18 01:00 (Zofran Odt) 4 mg Q6H PRN PO 03/06/18 01:15 (Narcan Inj) 0.4 mg UNSCH PRN IV PUSH 03/06/18 01:00 (Amber-Colace) 1 tab BID PO 03/06/18 09:00 (Milk Of Magnesia Liq) 30 ml Q12H PRN PO 03/06/18 01:00 (Senokot) 17.2 mg Q12H PRN PO 03/06/18 01:00 (Dulcolax Supp) 10 mg DAILY PRN RECTAL 03/06/18 01:00 (Lactulose Liq) 30 ml DAILY PRN PO 03/06/18 01:00 A/P Assessment and Plan 22-year-old male with no significant past medical history presented to the ED with complaints of dark coffee colored urine. Acute rhabdomyolysis, YECENIA: Secondary to strenuous exercise. -CPK 924, creatinine 1.48, UA unremarkable -Given aggressive IV fluid hydration -Repeat labs pending Testosterone abuse: acute -Counseled on cessation DVT prophylaxis: Patient is ambulatory Discharge Planning 0830 hours: Likely discharge today if repeat CPK and creatinine improve. 0900 hours: CPK improved to 610 and Cr improved to 1.06. Will discharge home. Strongly encouraged to continue oral hydration with water after discharge, and avoid strenuous exercise. Discharge patient to home Condition on discharge: Improved Regular Diet as tolerated Ad Laura activity Rx written: none Follow-up with primary care physician Ora Diaz PA-C Mar 06, 2018 08:30
[2018-03-06 08:31] LABS: BICARBONATE 23.1 MEQ/L (21.0-32.0); CALCIUM 8.2 MG/DL (8.5-10.1); CREATININE 1.06 MG/DL (0.60-1.30)
[2018-03-06] MEDS ORDERED: SODIUM CHLORIDE 0.9% FLUSH 10 ML FLUSH IV FLUSH SCH (09:00)
[2018-03-06] MEDS ORDERED: DOCUSATE SODIUM 50 MG/SENNA 8.6 MG TAB PO SCH (09:00)
--- NOTE | 2018-03-06 09:05 | HHI.DCPOC ---
Discharge Care Plan Diagnosis: (1) Rhabdomyolysis (2) YECENIA (acute kidney injury) (3) Dehydration Goals to Promote Your Health * To prevent worsening of your condition and complications * To maintain your health at the optimal level Directions to Meet Your Goals Take your medications as prescribed Follow your dietary instruction Follow activity as directed Keep your appointments as scheduled Take your immunizations and boosters as scheduled If your symptoms worsen call your PCP, if no PCP go to Urgent Care Center or Emergency Room Smoking is Dangerous to Your Health. Avoid second hand smoke Call the 24-hour hour crisis hotline for domestic abuse at Ora Diaz PA-C Mar 06, 2018 09:05
== END 2018-03-06 12:43 | disposition home or self-care (01) ==
LOC: NEPE 19:49 → NEDA 23:05 → NEPFCDU 03-06 01:16
PROVIDERS: ADMIT Family Medicine; ATTEND Family Medicine
DX: M62.82 Rhabdomyolysis (principal); N17.9 Acute kidney failure, unspecified; R74.8 Abnormal levels of other serum enzymes; E86.0 Dehydration; R31.9 Hematuria, unspecified; F32.9 Major depressive disorder, single episode, unspecified; Z87.891 Personal history of nicotine dependence
CPT/HCPCS: 80048; 81001; 82550; 82552; 85025; 96360; 96361; 99285; G0378; J7030